=== PATIENT | female | born 1990 | race Caucasian/White ===

== ENCOUNTER 2023-01-09 11:48 | Emergency (ER) | payer OTHER ==
[2023-01-09 11:59] VITALS: BMI 47.8
[2023-01-09 13:00] LABS: BASO % 0.4 % (0-2.0); EOS % 3.1 % (0-4.5); HEMOGLOBIN 14.5 GM/dL (10.7-15.3); MCH 27.7 pg (25.7-33.7); MCHC 33.6 g/dl (32.0-36.0); MEAN CELL VOLUME 82.5 fl (80-96); MEAN PLT VOLUME 7.1 fl (7.5-11.1); MONO % 5.9 % (3.8-10.2); NEUT % 64.6 % (42.8-82.8); PLATELET COUNT 431 10^3/uL (134-434); RBC 5.21 M/mm3 (3.60-5.2); RDW 14.5 % (11.6-15.6); WHITE BLOOD COUNT 9.3 K/mm3 (4.0-10.0)
[2023-01-09 13:12] LABS: CHLORIDE 106 mmol/L (98-107); SODIUM 138 mmol/L (136-145)
[2023-01-09 13:14] LABS: CALCIUM 9.9 mg/dL (8.5-10.1)
[2023-01-09 13:15] LABS: ALBUMIN 3.9 g/dl (3.4-5.0); ANION GAP 6 MMOL/L (8-16); BLOOD UREA NITROGEN 12.8 mg/dL (7-18); CO2 27 mmol/L (21-32); GLUCOSE,RANDOM 100 mg/dL (74-106); MAGNESIUM 2.1 mg/dL (1.8-2.4)
[2023-01-09 13:18] LABS: CREATININE 0.7 mg/dL (0.55-1.3); SGOT/AST 24 U/L (15-37); SGPT/ALT 40 U/L (13-61)
[2023-01-09 13:19] LABS: BILIRUBIN,TOTAL 0.4 mg/dL (0.2-1); TOT PROT 7.6 g/dl (6.4-8.2)
[2023-01-09 13:21] LABS: ALK PHOS 63 U/L (45-117)
[2023-01-09 13:48] LABS: LIPASE 64 U/L (73-393)
[2023-01-09 14:25] VITALS: BP 149/97; PULSE 78; RESP 18; TEMP 98
== END 2023-01-09 14:29 | disposition home or self-care (01) ==
LOC: JER 11:48
DX: R00.0 Tachycardia, unspecified (principal); R07.9 Chest pain, unspecified
CPT/HCPCS: 36415; 71046-TC-FY; 80053; 82550; 83690; 83735; 84443; 84484; 84703; 85025; 85379; 93005; 93010; 99285-25